=== PATIENT | female | born 1980 | race African-American/Black ===

== ENCOUNTER 2016-08-17 20:45 | Emergency (ER) | payer MEDICAID ==
[~2016-08-17] VITALS: Ht 149.9 cm; Wt 72.6 kg
[2016-08-17] MEDS ORDERED: Tetanus/Diptheria/Pertussis Vaccine 0.5ml Syr IM ONE (21:15)
[2016-08-17] MEDS ORDERED: KEFLEX500 MG ORAL (21:31)
--- NOTE | 2016-08-17 21:31 | Emergency Room Report ---
History of Present Illness General Chief Complaint: Laceration Source: Patient Present Illness HPI Is a 36-year-old female who is right-hand dominant. She presents with a laceration to left hand. She was collecting bottles in their car was rolling away. She tried to grab it. There was a broken bottle that caught her on the left hand. This occurred just prior to arrival. No other problem. No foreign body. No active bleeding. She called 911. Tetanus not up-to-date. Allergies: Coded Allergies: No Known Allergies (Unverified , 08/17/16) Patient History Past Medical History: see triage record, old chart reviewed Past Surgical History: other Pertinent Family History: none Social History: Denies: smoking Last Menstrual Period: Last week Now: No Immunizations: other Reviewed Nursing Documentation: PMH: Agreed, PSxH: Agreed Nursing Documentation-PMH Past Medical History: No Stated History Review of Systems Eye: Denies: blurred vision, eye pain ENT: Denies: ear pain, nose congestion, throat swelling Respiratory: Denies: cough, shortness of breath Cardiovascular: Denies: chest pain, palpitations Gastrointestinal: Denies: abdominal pain, diarrhea, nausea, vomiting Musculoskeletal: Denies: back pain, joint pain Skin: Denies: rash Neurological: Denies: headache, numbness Endocrine: Denies: increased thirst, increased urine Hematologic/Lymphatic: Denies: easy bruising All Other Systems: negative except mentioned in HPI Physical Exam Vital Signs Date Time Temp Pulse Resp B/P Pulse Ox O2 Delivery O2 Flow Rate FiO2 08/17/16 20:49 98.8 98 16 152/75 99 Room Air diagnosed with hypertension Sp02 EP Interpretation: reviewed, normal General Appearance: well appearing, no apparent distress, alert Head: normocephalic, atraumatic Eyes: bilateral eye EOMI, bilateral eye PERRL ENT: hearing grossly normal, normal pharynx Neck: full range of motion, supple, no meningismus Respiratory: chest non-tender, lungs clear, normal breath sounds Cardiovascular #1: regular rate, rhythm, no murmur Gastrointestinal: normal bowel sounds, non tender, no mass, no organomegaly, no bruit, non-distended Musculoskeletal: back normal, gait/station normal, normal range of motion, other - Left hand: There is a jagged 3 cm laceration to the Ulnar aspect of the palmar crease. No foreign body. No tendon laceration. Full range of motion of the fingers. Psychiatric: mood/affect normal Skin: warm/dry Procedures Laceration/Wound Repair Laceration/Wound Repair : Consent: Verbal Wound Location: upper extremity Wound's Depth, Shape: irregular, flap Wound Length (cm): 3 Wound Explored: clean Irrigated w/ Saline (ccs): 500 Anesthesia: Lidocaine w/ Epi Volume Anesthetic (ccs): 3 Wound Repaired With: sutures Suture Size/Type: 5:0, nylon Number of Sutures: 6 Patient Tolerated: Well Complications: None Medical Decision Making Diagnostic Impression: Primary Impression: Laceration of left hand Qualified Codes: S61.412A - Laceration without foreign body of left hand, initial encounter ER Course Patient with laceration to left hand. No foreign body. No tendon laceration. Last Vital Signs Date Time Temp Pulse Resp B/P Pulse Ox O2 Delivery O2 Flow Rate FiO2 08/17/16 20:49 98.8 98 16 152/75 99 Room Air Status: improved Disposition: HOME, SELF-CARE Condition: Stable Scripts Cephalexin* (KEFLEX*) 500 Mg Capsule 500 MG ORAL TID, #21 CAP 0 Refills Prov: ANAYNA RICO M.D. 08/17/16 Patient Instructions: Laceration Care, Adult Additional Instructions: Followup with your DrAmee in 7 days for suture out in 7-10 days. Return if infected the ANANYA RICO M.D. Aug 17, 2016 21:31
[2016-08-17 23:43] VITALS: BP 100/65
== END 2016-08-17 23:43 | disposition home or self-care (01) ==
LOC: EMR 22:07
DX: S61.412A Laceration without foreign body of left hand, initial encounter (principal); W25.XXXA Contact with sharp glass, initial encounter; Y93.9 Activity, unspecified; Y92.9 Unspecified place or not applicable
CPT/HCPCS: 96372

== ENCOUNTER 2016-08-24 23:03 | Emergency (ER) | payer MEDICAID ==
[~2016-08-24] VITALS: Ht 137.2 cm; Wt 54.4 kg
[~2016-08-24 23:03] MED LIST: KEFLEX500 MG ORAL
[2016-08-24 23:47] VITALS: BP_SYST 1; BP_SYST 131; BP_DIAS 1; BP_DIAS 73
--- NOTE | 2016-08-25 04:37 | Emergency Room Report ---
History of Present Illness General Chief Complaint: General Complaint Source: Patient Present Illness HPI 36-year-old female presents to ED for suture removal. States she had sutures placed in her left hand approximately one week ago. She is here to have the stitches removed. Denies any pain. States the wound is healed well. No other aggravating relieving factors. Denies any other associated symptom Allergies: Coded Allergies: No Known Allergies (Unverified , 08/17/16) Patient History Past Medical History: none Past Surgical History: none Pertinent Family History: none Social History: Denies: alcohol use, drug use, smoking Last Menstrual Period: SOMETIME THIS MONTH Now: No Immunizations: UTD Reviewed Nursing Documentation: PMH: Agreed, PSxH: Agreed Nursing Documentation-PMH Past Medical History: No Stated History Review of Systems All Other Systems: negative except mentioned in HPI Physical Exam Vital Signs Date Time Temp Pulse Resp B/P Pulse Ox O2 Delivery O2 Flow Rate FiO2 08/24/16 23:15 98.8 65 18 131/73 100 Room Air Sp02 EP Interpretation: reviewed, normal General Appearance: no apparent distress, alert, GCS 15, non-toxic Head: normocephalic Eyes: bilateral eye PERRL, bilateral eye normal inspection ENT: normal ENT inspection Neck: normal inspection Respiratory: normal inspection Cardiovascular #1: normal inspection Gastrointestinal: normal inspection Rectal: deferred Genitourinary: no CVA tenderness Musculoskeletal: back normal, gait/station normal, normal range of motion, non- tender Neurologic: alert, oriented x3, responsive, motor strength/tone normal, sensory intact, speech normal Psychiatric: normal inspection Skin: other - wound well healed, approximated with sutures Lymphatic: normal inspection Medical Decision Making Diagnostic Impression: Primary Impression: Visit for suture removal ER Course Patient presents to the emergency department today for suture removal. patient' s wound appears well-healed, and sutures are ready to be removed today. Using sterile technique the sutures were removed patient tolerated procedure well without any difficulty. Patient was given device in how to care for the wound patient is advised followup with his private care doctor in 2-3 days and return to emergency room for any worsening conditions as needed Last Vital Signs Date Time Temp Pulse Resp B/P Pulse Ox O2 Delivery O2 Flow Rate FiO2 08/24/16 23:47 1/08/24/16 23:47 98.8 18 100 Room Air 08/24/16 23:15 65 Status: improved Disposition: HOME, SELF-CARE Condition: Stable Referrals: NOT CHOSEN IPA/MD,REFERRING (PCP) Patient Instructions: Suture Removal, Care After ERICA REZA M.D. Aug 25, 2016 04:37
== END 2016-08-24 23:45 | disposition home or self-care (01) ==
LOC: EMR 23:35
DX: Z48.02 Encounter for removal of sutures (principal)
CPT/HCPCS: 99281